=== PATIENT | female | born 1985 | race Caucasian/White ===

== ENCOUNTER 2023-06-14 06:18 | Emergency (ER) | payer MEDICAID ==
[~2023-06-14] VITALS: Ht 167.6 cm; Wt 53.5 kg
[2023-06-14] MEDS ORDERED: SPIR25TA6 PO (06:42)
[2023-06-14] MEDS ORDERED: LEVO88TA5 PO (06:42)
[2023-06-14] MEDS ORDERED: TORS20TA3 PO (06:42)
[2023-06-14] MEDS ORDERED: LACT10SO58 PO (06:42)
[2023-06-14] MEDS ORDERED: FERR325T28 PO (06:42)
[2023-06-14] MEDS ORDERED: POTA-88 PO (06:42)
[2023-06-14] MEDS ORDERED: MORPHINE SULFATE 4 MG/1 ML DISP.SYRIN ONE ×2 (06:43→08:29)
[2023-06-14] MEDS ORDERED: ONDANSETRON 4 MG/2 ML VIAL ONE (06:43)
[2023-06-14] MEDS ORDERED: MORPHINE SULFATE 2 MG/1 ML DISP.SYRIN IV ONE (06:45)
[2023-06-14] MEDS ORDERED: ONDANSETRON 4 MG/2 ML VIAL IV ONE (06:45)
[2023-06-14 07:12] LABS: BASOPHILS % (AUTO) 0.5 % (0.0-2.0); EOSINOPHILS % (AUTO) 1.3 % (0.0-7.0); HEMATOCRIT 25.7 % (31.2-41.9); HEMOGLOBIN 8.6 g/dL (10.9-14.3); LYMPHOCYTES # (AUTO) 0.6 K/uL (0.8-4.8); LYMPHOCYTES % (AUTO) 27.8 % (20.5-51.5); MEAN CORPUSCULAR HEMOGLOBIN 31.2 uug (24.7-32.8); MEAN CORPUSCULAR HGB CONC 34 g/dL (32.3-35.6); MEAN CORPUSCULAR VOLUME 92.9 fL (75.5-95.3); MONOCYTES # (AUTO) 0.4 K/uL (0.1-1.30); MONOCYTES % (AUTO) 15.9 % (0.0-11.0); NEUTROPHILS # (AUTO) 1.3 K/uL (1.8-8.9); NEUTROPHILS % (AUTO) 54.5 % (38.5-71.5); PLATELET COUNT (AUTO) 52 K/uL (179-408); RED BLOOD CELL COUNT(AUTO) 2.77 MIL/uL (3.63-4.92); RED CELL DISTRIBUTION WIDTH 16.3 % (12.3-17.7); WHITE BLOOD COUNT (AUTO) 2.3 K/uL (3.8-11.8)
[2023-06-14 07:25] LABS: ALBUMIN 1.9 g/dL (3.4-5.0); BILIRUBIN,DIRECT 2.1 mg/dL (0.0-0.2); BILIRUBIN,TOTAL 2.5 mg/dL (0.2-1.0); CALCIUM 8.1 mg/dL (8.5-10.1); CREATININE 1.6 mg/dL (0.6-1.3)
[2023-06-14 07:39] LABS: DIFFERENTIAL COMMENT 1
[2023-06-14 07:41] LABS: POTASSIUM 2.7 mmol/L (3.5-5.1)
[2023-06-14 08:21] LABS: *URINE HCG, QUAL NEGATIVE (NEGATIVE)
[2023-06-14] MEDS ORDERED: POTASSIUM CHLORIDE 20 MEQ TAB.PRT.SR PO ONE (08:30)
[2023-06-14] MEDS ORDERED: MORPHINE SULFATE 4 MG/1 ML DISP.SYRIN IV ONE (08:30)
[2023-06-14 09:42] VITALS: BP 94/59; O2SAT 97
[2023-06-14 11:53] LABS: LYMPHOCYTES % (MANUAL) 28 % (20-40); MONOCYTES % (MANUAL) 13 % (2-10); NEUTROPHILS % (MANUAL) 59 % (42-75); PLATELET ESTIMATE DECREASED
[2023-06-14 11:54] LABS: ANISOCYTOSIS 1+
== END 2023-06-14 09:31 | disposition home or self-care (01) ==
LOC: ER 06:31
DX: K74.60 Unspecified cirrhosis of liver (principal); R10.31 Right lower quadrant pain; E03.9 Hypothyroidism, unspecified; Z86.2 Personal history of diseases of the blood and blood-forming organs and certain disorders involving the immune mechanism; Z88.8 Allergy status to other drugs, medicaments and biological substances; Z91.018 Allergy to other foods; Z79.899 Other long term (current) drug therapy
CPT/HCPCS: 99285; 74176; 96374; 96375; 80076; 80048; 84703; 83690; 85025; 36415; 96376; 85007; J2405; J2270 ×2; 70030-TC; A4663

== ENCOUNTER 2023-06-14 23:00 | Inpatient (IN) | payer MEDICAID ==
[~2023-06-14] VITALS: Ht 167.6 cm; Wt 53.5 kg
[~2023-06-14 23:00] MED LIST: FERR325T28 PO; LACT10SO58 PO; LEVO88TA5 PO; POTA-88 PO; SPIR25TA6 PO; TORS20TA3 PO
[2023-06-14 23:16] VITALS: O2SAT 97
[2023-06-15] MEDS ORDERED: MORPHINE SULFATE 4 MG/1 ML DISP.SYRIN IV ONE ×3 (00:15→04:30)
[2023-06-15] MEDS ORDERED: ONDANSETRON HCL 4 MG TABLET PO ONE (00:15)
[2023-06-15] MEDS ORDERED: MORPHINE SULFATE 4 MG/1 ML DISP.SYRIN ONE ×3 (00:21→04:26)
[2023-06-15] MEDS ORDERED: ONDANSETRON HCL 4 MG TABLET ONE (00:21)
[2023-06-15] MEDS ORDERED: MAG HYDROX/AL HYDROX/SIMETH 30 ML LIQUID UDC PO ONE (02:15)
[2023-06-15] MEDS ORDERED: MAG HYDROX/AL HYDROX/SIMETH 30 ML LIQUID UDC ONE (02:31)
[2023-06-15] MEDS ORDERED: MORPHINE SULFATE 2 MG/1 ML DISP.SYRIN IV PRN (06:45)
[2023-06-15] MEDS ORDERED: ONDANSETRON 4 MG/2 ML VIAL IV PRN (06:45)
[2023-06-15] MEDS ORDERED: POTASSIUM CHLORIDE 20 MEQ in IV D5/ 0.9% NACL 1,000 ML IV PRN (06:45)
[2023-06-15] MEDS ORDERED: LORAZEPAM 2 MG/1 ML VIAL IV PRN (06:45)
[2023-06-15 07:20] LABS: EOSINOPHILS % (AUTO) 1.1 % (0.0-7.0); HEMATOCRIT 24.9 % (31.2-41.9); HEMOGLOBIN 8.3 g/dL (10.9-14.3); LYMPHOCYTES % (AUTO) 44.9 % (20.5-51.5); MEAN CORPUSCULAR HGB CONC 33 g/dL (32.3-35.6); MEAN CORPUSCULAR VOLUME 92.9 fL (75.5-95.3); MONOCYTES # (AUTO) 0.4 K/uL (0.1-1.30); MONOCYTES % (AUTO) 16.7 % (0.0-11.0); NEUTROPHILS # (AUTO) 0.8 K/uL (1.8-8.9); NEUTROPHILS % (AUTO) 36.3 % (38.5-71.5); PLATELET COUNT (AUTO) 73 K/uL (179-408); RED BLOOD CELL COUNT(AUTO) 2.68 MIL/uL (3.63-4.92); RED CELL DISTRIBUTION WIDTH 16.9 % (12.3-17.7); WHITE BLOOD COUNT (AUTO) 2.2 K/uL (3.8-11.8)
[2023-06-15 07:33] LABS: ALBUMIN 1.9 g/dL (3.4-5.0); CALCIUM 8.3 mg/dL (8.5-10.1); CREATININE 1.4 mg/dL (0.6-1.3); MAGNESIUM 1.9 mg/dL (1.8-2.4); PHOSPHOROUS 3.6 mg/dL (2.5-4.9); POTASSIUM 2.9 mmol/L (3.5-5.1); TOTAL PROTEIN, SERUM 6.3 g/dL (6.4-8.2)
[2023-06-15 08:13] LABS: DIFFERENTIAL COMMENT 1
[2023-06-15 08:21] LABS: *URINE HCG, QUAL NEGATIVE (NEGATIVE)
[2023-06-15] MEDS ORDERED: MORPHINE SULFATE 2 MG/1 ML DISP.SYRIN ONE (08:38)
[2023-06-15] MEDS ORDERED: FOLIC ACID 1 MG TABLET PO SCH (09:00)
[2023-06-15] MEDS ORDERED: PANTOPRAZOLE SODIUM 40 MG VIAL IV SCH (09:00)
[2023-06-15] MEDS ORDERED: THIAMINE HCL 100 MG TABLET PO SCH (09:00)
[2023-06-15 14:33] LABS: EOSINOPHILS % (MANUAL) 1 % (0-8); LYMPHOCYTES % (MANUAL) 49 % (20-40); MONOCYTES % (MANUAL) 12 % (2-10); NEUTROPHILS % (MANUAL) 38 % (42-75)
[2023-06-15 14:34] LABS: ANISOCYTOSIS 1+; PLATELET ESTIMATE DECREASED
== END 2023-06-15 09:29 | disposition left against medical advice (07) | DRG 280 ==
LOC: ER 23:06 → MEDSURG3 06-15 09:14
PROVIDERS: ADMIT Internal Medicine; ATTEND Nurse Practitioner Acute Care
DX: K70.31 Alcoholic cirrhosis of liver with ascites (principal); N17.0 Acute kidney failure with tubular necrosis; E43 Unspecified severe protein-calorie malnutrition; D61.818 Other pancytopenia; K76.6 Portal hypertension; C22.9 Malignant neoplasm of liver, not specified as primary or secondary; E88.09 Other disorders of plasma-protein metabolism, not elsewhere classified; E87.1 Hypo-osmolality and hyponatremia; D73.1 Hypersplenism; E03.9 Hypothyroidism, unspecified; F10.10 Alcohol abuse, uncomplicated; E87.6 Hypokalemia; Z88.6 Allergy status to analgesic agent; Z91.018 Allergy to other foods; E61.1 Iron deficiency; Z79.890 Hormone replacement therapy; I86.8 Varicose veins of other specified sites
CPT/HCPCS: 36415; 70030-TC; 76705; 82105; 83550; 83690; 83735; 84100; 84703; 85025; G0378; J2270; J3480; J7042; Q0162

== ENCOUNTER 2023-06-23 22:02 | Emergency (ER) | payer MEDICAID ==
[~2023-06-23] VITALS: Ht 167.6 cm; Wt 53.5 kg
[2023-06-23] MEDS ORDERED: ONDANSETRON HCL 4 MG TABLET PO ONE (22:45)
[2023-06-23] MEDS ORDERED: MORPHINE SULFATE 4 MG/1 ML DISP.SYRIN IM ONE (22:45)
[2023-06-23] MEDS ORDERED: ONDANSETRON HCL 4 MG TABLET ONE (22:47)
[2023-06-23] MEDS ORDERED: MORPHINE SULFATE 4 MG/1 ML DISP.SYRIN ONE (22:48)
[2023-06-23] MEDS ORDERED: ACET1TAB23 PO (23:03)
[2023-06-23 23:15] VITALS: BP 109/44; O2SAT 100
== END 2023-06-23 23:16 | disposition home or self-care (01) ==
LOC: ER 22:06
DX: U07.1 COVID-19 (principal); M79.10 Myalgia, unspecified site; K74.60 Unspecified cirrhosis of liver; E87.6 Hypokalemia; E03.9 Hypothyroidism, unspecified; Z88.8 Allergy status to other drugs, medicaments and biological substances; Z91.018 Allergy to other foods; Z79.899 Other long term (current) drug therapy
CPT/HCPCS: 99283; 96372; J2270; A4663; Q0162